=== PATIENT | male | born 1950 | race Two or more races ===

== ENCOUNTER 2017-11-05 10:09 | Emergency (ER) | payer OTHER ==
[2017-11-05] MEDS ORDERED: PANTOPRAZOLE SODIUM 40 MG VIAL IVP ONE (10:49)
[2017-11-05] MEDS ORDERED: NS 1,000 ML IV ONE (10:49)
--- NOTE | 2017-11-05 10:53 | EDPHY ---
H & P Smoking Status: Former smoker Time Seen by Provider: 11/05/17 10:24 HPI/ROS: CHIEF COMPLAINT: Hematemesis, abdominal pain, bloating HISTORY OF PRESENT ILLNESS: 66-year-old male presents emergency department with hematemesis that began yesterday. The patient states that he had 3 episodes of hematemesis while he was at work. This morning he describes more diffuse abdominal pain and bloating. He has had no appetite. He reports that his stools have been a bit darker although he has not noticed blood. He denies melena. No diarrhea. He denies chest pain or difficulty breathing. Denies back pain. Denies urinary symptoms. No reported trauma. He denies alcohol use. He does report that he has history of arthritis in his knees and takes prescribed medication for pain. He is not sure what the name of this medication is but it is once daily. He has not been taking more than his prescribed. He does report that he had a history of peptic ulcers 4 years ago when he was in [place]. He believes this was treated with a"laser". He does not know if they given any medications for this. He thinks that this was as a result of taking too much ibuprofen for his pain. He denies ibuprofen now. REVIEW OF SYSTEMS: Constitutional: No fever, no chills. Eyes: No double or blurry vision. ENT: No sore throat. Respiratory: No cough, no shortness of breath. Cardiac: No chest pain. Gastrointestinal: Abdominal pain, hematemesis. No diarrhea. Genitourinary: No dysuria. Musculoskeletal: No neck or back pain. Skin: No rashes. Neurological: No headache. (Richmond Bal) Past Medical/Surgical History: Peptic ulcer disease (Richmond Bal) Social History: Single (Richmond Bal) Physical Exam: General Appearance: Alert, no distress. Vital signs are stable. The patient appears well. Predominantly Citizen Of [place]-speaking only, medical interpreter at bedside. Eyes: Pupils equal and round. Extraocular motions are all intact. ENT: Mouth: Mucous membranes moist. Respiratory: No wheezing, rhonchi, or rales, lungs are clear to auscultation. Cardiovascular: Regular rate and rhythm. Gastrointestinal: Abdomen is soft. He has tenderness with palpation especially more so in the epigastric area. There is no rebound, guarding or masses noted. No CVA tenderness bilaterally. Neurological: Alert and oriented x 3, cranial nerves II through XII grossly intact Skin: Warm and dry, no rashes. Musculoskeletal: Nontender to palpate along the cervical, thoracic or lumbar spine. Neck is supple. Extremities: Full range of motion and no peripheral edema. Psychiatric: Patient is oriented X 3, there is no agitation. (Richmond Bal) Constitutional: Initial Vital Signs Temperature (C) 36.5 C 11/05/17 10:17 Heart Rate 66 11/05/17 10:17 Respiratory Rate 16 11/05/17 10:17 Blood Pressure 112/71 11/05/17 10:17 O2 Sat (%) 94 11/05/17 10:17 O2 Delivery Mode Room Air Allergies/Adverse Reactions: No Known Allergies Allergy (Unverified 11/05/17 10:21) Home Medications: Medication Instructions Recorded Med For Depression 11/05/17 Medical Decision Making - Diagnostics Imaging: Discussed imaging studies w/ calliope player Radiologist - Diagnostics Imaging Results: Imaging Impressions Abdomen CT 11/05/17 11:23 Impression: 1.There is no evidence of a mechanical bowel obstruction, intra-abdominal fluid collection, or pneumoperitoneum. Gastritis is not excluded, and if there is further clinical concern, GI consultation and endoscopy could be considered. 2. There is a 5.8 mm calcified nodule in the anteromedial right middle lobe. In this patient with a prior tobacco use history, it is optional to obtain a CT follow-up in 12 months. Findings were discussed with RICHMOND BAL PA-C at 12:20, on 11/05/2017. ED Course/Re-evaluation: 66-year-old male presents to the emergency department with 3 episodes of hematemesis and abdominal pain and bloating. I was concerned about possible perforated gastric or duodenal ulcer and I recommended CT imaging of the abdomen and pelvis. CT scan reveals no evidence of perforation. The patient had normal laboratory studies. He was given 40 mg of IV Protonix in the emergency department. Patient was monitored for several hours in the emergency department. He had no recurring hematemesis or vomiting. He feels comfortable being discharged home. Patient was given GI referral. medical interpreter was at bedside. (Richmond Bal) Differential Diagnosis: Including but not limited to peptic ulcer disease, perforated ulcer, GERD, cholecystitis, cholelithiasis (Richmond Bal) - Data Points Laboratory Results: Laboratory Results 11/05/17 10:50 11/05/17 10:50 11/05/17 11/05/17 11/05/17 10:50 10:50 10:36 WBC 8.39 10^3/uL 10^3/uL (3.80-9.50) RBC 5.01 10^6/uL 10^6/uL (4.40-6.38) Hgb 15.2 g/dL g/dL (13.7-17.5) Hct 45.5 % % (40.0-51.0) MCV 90.8 fL fL (81.5-99.8) MCH 30.3 pg pg (27.9-34.1) MCHC 33.4 g/dL g/dL (32.4-36.7) RDW 13.1 % % (11.5-15.2) Plt Count 197 10^3/uL 10^3/uL (150-400) MPV 10.1 fL fL (8.7-11.7) Neut % (Auto) 66.3 % % (39.3-74.2) Lymph % (Auto) 21.2 % % (15.0-45.0) [place] % (Auto) 7.4 % % (4.5-13.0) Eos % (Auto) 4.2 % % (0.6-7.6) Baso % (Auto) 0.5 % % (0.3-1.7) Nucleat RBC Rel Count 0.0 % % (0.0-0.2) Absolute Neuts (auto) 5.57 10^3/uL 10^3/uL (1.70-6.50) Absolute Lymphs (auto) 1.78 10^3/uL 10^3/uL (1.00-3.00) Absolute Monos (auto) 0.62 10^3/uL 10^3/uL (0.30-0.80) Absolute Eos (auto) 0.35 10^3/uL 10^3/uL (0.03-0.40) Absolute Basos (auto) 0.04 10^3/uL 10^3/uL (0.02-0.10) Absolute Nucleated RBC 0.00 10^3/uL 10^3/uL (0-0.01) Immature Gran % 0.4 % % (0.0-1.1) Immature Gran # 0.03 10^3/uL 10^3/uL (0.00-0.10) Sodium 143 mEq/L mEq/L (135-145) Potassium 3.9 mEq/L mEq/L (3.3-5.0) Chloride 107 mEq/L mEq/L (97-110) Carbon Dioxide 27 mEq/l mEq/l (22-31) Anion Gap 9 mEq/L mEq/L (8-16) BUN 16 mg/dL mg/dL (7-23) Creatinine 0.8 mg/dL mg/dL (0.7-1.3) Estimated GFR > 60 Glucose 90 mg/dL mg/dL (70-100) Calcium 8.9 mg/dL mg/dL (8.5-10.4) Stool Occult Bld Scrn NEGATIVE (NEGATIVE) Medications Given: Discontinued Medications Sodium Chloride (Ns) 1,000 mls @ 0 mls/hr IV ONCE ONE PRN Reason: Wide Open Stop: 11/05/17 10:50 Last Admin: 11/05/17 10:54 Dose: 1,000 mls Pantoprazole Sodium (Protonix) 40 mg IVP EDNOW ONE Stop: 11/05/17 10:50 Last Admin: 11/05/17 10:55 Dose: 40 mg Departure - Departure Disposition: Home, Routine, Self-Care Clinical Impression: Hematemesis Qualifiers: Nausea presence: unspecified Qualified Code(s): K92.0 - Hematemesis Abdominal pain Qualifiers: Abdominal location: generalized Qualified Code(s): R10.84 - Generalized abdominal pain Condition: Good Instructions: Abdominal Pain (ED), Hematemesis (ED) Additional Instructions: Prilosec, omeprazole, twice daily for 2 weeks and then once daily thereafter. Follow up with rehab nursing tech next week as discussed. Diet and activity as tolerated. Return to the emergency department if you developed chest pain, difficulty breathing, recurring abdominal pain, recurring blood in your vomit or in your stool. Prilosec, omeprazole, dos veces al fortino por 2 semanas y despues beth vez. Seguimiento con el gastroenterologo la proxima semana cookie lo discutimos. Dieta y actividad cookie sea tolerada. Regrese al departamento de emergencias si desarolla dolor de pecho, dificultad al respirar, dolor abdominal recurrente, cyndy recurrente en el vomito o en las heces. 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
[2017-11-05 10:57] LABS: PLATELET COUNT 197 10^3/uL (150-400)
[2017-11-05] MEDS ORDERED: IOPAMIDOL (ISOVUE-300) 100 ML BTL ONE (11:37)
[2017-11-05 12:56] VITALS: BP 109/67
== END 2017-11-05 13:03 | disposition home or self-care (01) ==
DX: K92.0 Hematemesis (principal); R10.84 Generalized abdominal pain
CPT/HCPCS: 96374; Q9967

== ENCOUNTER 2018-07-16 23:02 | Emergency (ER) | payer OTHER ==
[2018-07-16] MEDS ORDERED: NS 1,000 ML IV ONE (23:35)
--- NOTE | 2018-07-17 00:11 | EDPHY ---
H & P Stated Complaint: NVD Time Seen by Provider: 07/17/18 00:06 HPI/ROS: CHIEF COMPLAINT: Diarrhea, abdominal cramping x3 days HISTORY OF PRESENT ILLNESS: 67-year-old male via private vehicle complaining of 3 days of diarrhea described as watery diarrhea every 5 min with associated abdominal cramping. No current complaints of abdominal pain. No recent antibiotic use. No international travel. No untreated water sources. No nausea or vomiting. PRIMARY CARE PROVIDER: REVIEW OF SYSTEMS: 10 systems reviewed and negative with the exception of the elements mentioned in the history of present illness PAST MEDICAL & SURGICAL HISTORY: No pertinent medical or surgical history SOCIAL HISTORY:Nonsmoker. PHYSICAL EXAM (Prior to examination, patient consented to physical exam, hands were washed and my usual and customary physical exam procedures followed) 1) GENERAL: Well-developed, well-nourished, alert and oriented. Appears to be in no acute distress. 2) HEAD: Normocephalic, atraumatic 3) HEENT: Pupils equal, round, reactive to light bilaterally. Sclera anicteric. Nasopharynx, oropharynx, clear, no lesions. Dry mucous membranes. 4) NECK: Full range of motion, no meningeal signs. 5) LUNGS: Clear auscultation bilaterally, no wheezes, no rhonchi, no retractions. 6) HEART: Regular rate and rhythm, no murmur, no heave, no gallop. 7) ABDOMEN: No guarding, no rebound, no focal tenderness, negative McBurney's, negative Enriquez's, negative Rovsing's, negative peritoneal sign, I am unable to elicit any abdominal pain on exam 8) MUSCULOSKELETAL: Moving all extremities, no focal areas of tenderness, no obvious trauma. No peripheral edema or discoloration. 9) BACK: No CVA tenderness, no midline vertebral tenderness, no fluctuance, no step-off, no obvious trauma, no visual or palpable abnormality. 10) SKIN: No rash, no petechiae. 11) Psychiatric: Patient is oriented X 3, there is no agitation. DIFFERENTIAL DIAGNOSIS: My differential diagnosis includes, but is not limited to, acute appendicitis, acute cholecystitis, bowel obstruction, acute pancreatitis,, gastritis. The patient understands that this diagnosis is provisional and can never be 100% accurate. This is a partial list of diagnoses considered. These considerations are based on history, physical exam, past history and reassessment. - Personal History Current Tetanus Diphtheria and Acellular Pertussis (TDAP): Yes Tetanus Vaccine Date: < 10 YEARS - Medical/Surgical History Hx Asthma: No Hx Chronic Respiratory Disease: No Hx Diabetes: No Hx Cardiac Disease: No Hx Renal Disease: No Hx Cirrhosis: No Hx Alcoholism: No Hx HIV/AIDS: No Hx Splenectomy or Spleen Trauma: No Other PMH: DEPRESSION, BONE PAIN - Social History Smoking Status: Former smoker Constitutional: Initial Vital Signs Temperature (C) 36.6 C 07/16/18 23:19 Heart Rate 57 L 07/16/18 23: Respiratory Rate 16 07/16/18 23:19 Blood Pressure 108/62 07/16/18 23:19 O2 Sat (%) 96 07/16/18 23:19 O2 Delivery Mode Room Air Allergies/Adverse Reactions: No Known Allergies Allergy (Unverified 07/16/18 23:17) Home Medications: Medication Instructions Recorded Imodium 2 mg (*) 07/16/18 Medical Decision Making - Diagnostics Imaging Results: Radiology results via direct radiology faxed at 1:26 a.m. Shows mild circumferential wall thickening the 2nd proximal 3rd segment of the duodenum, consider enteritis, air-fluid levels in the colon consistent with reported diarrheal process, minimal from a pimentel on sigmoid colon versus motion artifact possibly an acute colitis. No bowel perforation or obstruction. Images reviewed by myself as well. ED Course/Re-evaluation: 1:50 a.m.: Patient would like to be discharged home. I reviewed Reviewed the patient his imaging results. Re-examined his abdomen which is soft no guarding no rebound. Doubt acute surgical abdominal pathology. He was able to provide stool sample at this time which is currently pending. Will hold on antibiotics until stool results are known. I recommended he stay until results are returned however he would like to be discharged. He has no complaints of abdominal pain. Patient feels comfortable being discharged. All questions and concerns addressed by myself. Patient given my usual and customary discharge precautions and instructions regarding their clinical impression. Care of patient under supervision of secondary supervising physician Dr Jessee Torres with whom I discussed case. - Data Points Laboratory Results: Laboratory Results 07/16/18 23:45 07/16/18 23:45 07/17/18 07/16/18 07/16/18 01:35 23:45 23:45 WBC 6.02 10^3/uL 10^3/uL (3.80-9.50) RBC 4.89 10^6/uL 10^6/uL (4.40-6.38) Hgb 14.5 g/dL g/dL (13.7-17.5) Hct 43.7 % % (40.0-51.0) MCV 89.4 fL fL (81.5-99.8) MCH 29.7 pg pg (27.9-34.1) MCHC 33.2 g/dL g/dL (32.4-36.7) RDW 13.7 % % (11.5-15.2) Plt Count 186 10^3/uL 10^3/uL (150-400) MPV 9.7 fL fL (8.7-11.7) Neut % (Auto) 60.2 % % (39.3-74.2) Lymph % (Auto) 26.6 % % (15.0-45.0) [place] % (Auto) 10.0 % % (4.5-13.0) Eos % (Auto) 2.7 % % (0.6-7.6) Baso % (Auto) 0.2 % L % (0.3-1.7) Nucleat RBC Rel Count 0.0 % % (0.0-0.2) Absolute Neuts (auto) 3.63 10^3/uL 10^3/uL (1.70-6.50) Absolute Lymphs (auto) 1.60 10^3/uL 10^3/uL (1.00-3.00) Absolute Monos (auto) 0.60 10^3/uL 10^3/uL (0.30-0.80) Absolute Eos (auto) 0.16 10^3/uL 10^3/uL (0.03-0.40) Absolute Basos (auto) 0.01 10^3/uL L 10^3/uL (0.02-0.10) Absolute Nucleated RBC 0.00 10^3/uL 10^3/uL (0-0.01) Immature Gran % 0.3 % % (0.0-1.1) Immature Gran # 0.02 10^3/uL 10^3/uL (0.00-0.10) Sodium 138 mEq/L mEq/L (135-145) Potassium 4.0 mEq/L mEq/L (3.5-5.2) Chloride 107 mEq/L mEq/L (97-110) Carbon Dioxide 24 mEq/l mEq/l (22-31) Anion Gap 7 mEq/L mEq/L (6-14) BUN 10 mg/dL mg/dL (7-23) Creatinine 0.8 mg/dL mg/dL (0.7-1.3) Estimated GFR > 60 Glucose 95 mg/dL mg/dL (70-100) Calcium 7.9 mg/dL L mg/dL (8.5-10.4) Total Bilirubin 0.5 mg/dL mg/dL (0.1-1.4) Conjugated Bilirubin 0.2 mg/dL mg/dL (0.0-0.5) Unconjugated Bilirubin 0.3 mg/dL mg/dL (0.0-1.1) AST 39 IU/L IU/L (17-59) ALT 50 IU/L IU/L (21-72) Alkaline Phosphatase 117 IU/L IU/L (38-126) Total Protein 6.4 g/dL g/dL (6.3-8.2) Albumin 3.6 g/dL g/dL (3.5-5.0) Lipase 75 IU/L IU/L (23-300) Stool Occult Bld Scrn Pending Medications Given: Discontinued Medications Sodium Chloride (Ns) 1,000 mls @ 0 mls/hr IV ONCE ONE; Wide Open PRN Reason: Protocol Stop: 07/16/18 23:36 Last Admin: 07/16/18 23:44 Dose: 1,000 mls Departure - Departure Disposition: Home, Routine, Self-Care Clinical Impression: Diarrhea Qualifiers: Diarrhea type: infectious Qualified Code(s): A09 - Infectious gastroenteritis and colitis, unspecified Condition: Good Instructions: Acute Diarrhea (ED) Additional Instructions: Return to the emergency department if you develop abdominal pain, fevers or any other symptoms that concern you. Referrals: [facility],. [Clinic] - 1-2 days without fail
[2018-07-17 00:25] LABS: PLATELET COUNT 186 10^3/uL (150-400)
[2018-07-17] MEDS ORDERED: IOPAMIDOL (ISOVUE-300) 100 ML BTL ONE (00:44)
[2018-07-17 03:32] VITALS: BP 110/61
== END 2018-07-17 03:02 | disposition home or self-care (01) ==
DX: A09 Infectious gastroenteritis and colitis, unspecified (principal); E86.9 Volume depletion, unspecified
CPT/HCPCS: 74177; 96360; 99285; Q9967